=== PATIENT | male | born 1970 | race Caucasian/White ===

== ENCOUNTER → 2017-09-01 | Outpatient (CLI) | payer OTHER ==
[~2017-09-01] VITALS: Ht 180.3 cm; Wt 165.9 kg
[~2017-09-01] MED LIST: CEPH500C PO; SULF1TAB31 PO
[2017-09-01 15:37] VITALS: Ht 180.3 cm; Wt 165.9 kg
[2017-09-01 15:38] VITALS: BP 128/80; PULSE 86; RESP 18
--- NOTE | 2017-09-01 16:01 | PN ---
Date/Time of Note Date/Time of Note DATE: 09/01/17 TIME: 15:56 Outpatient Progress Note Chief Complaint Right axillary abscess/diabetes/obesity HPI Right axillary abscess/patient was recently hospitalized with a right axillary abscess, patient on the multiple antibiotic, patient doing better, no fever chill, minimal discharge, Diabetes/patient has history of diabetes, patient not on any medication, patient was recently admitted with a diabetic ketoacidosis, patient was getting insulin in the hospital, on discharge patient does not have any medication, no Accu-Chek machine, Patient still has slight polydipsia polyuria, blood sugar here 300+, Obesity/patient morbidly obese, no history of hypothyroidism, Review of Systems Const: No Fever, no chills, no Wt. loss, no Fatigue, normal appetite, no diaphoresis. Patient morbidly obese, Eyes: No pain, no discharge, no redness, no visual change, no foreign body. ENT: No pain, no bleeding, no congestion, no sore throat, no dysphagia, no discharge or rhinitis. Lymph: No adenopathy, no tender nodes, no lymphedema. Resp: No SOB, no cough, no sputum, no wheezing, no chest pain. CV: No chest pain, no palpitaions, no MOREJON, no PND, no edema. GI: Normal appetite, no pain, no nausea, no vomiting, no diarrhea, no blood, no constipation. : No frequency, no urgency, no dysuria, no hematuria, no flank pain, no discharge, no bleeding. Musc: no back pain, no neck pain, no knee pain, no restricted ROM. Skin: No rash, no skin lesions, no erythema, no laceration, no bruising, no pruritus. Right axillary abscess improving Neuro: No FOSTER, no dizziness, no syncope, no seizure, no focal-weakness. Endo: No polyuria, no polydypsia, no dry-skin, no temp-intolerance. Psych: No hallucinations, no depression, no anxiety, no suicidal ideation. Ext: No edema, no pain, no ulcer, no weakness. Physical Exam Vital Signs Date Time Temp Pulse Resp B/P Pulse Ox O2 Delivery O2 Flow Rate FiO2 09/01/17 15:38 97.9 86 18 128/80 96 Room Air General Appearance: A 46 year-old male who appears well-developed, well- nourished, in no acute distress. HEENT: Head normocephalic, atraumatic. Pupils equal, round, reactive to light and accommodate. Sclerae are no jaundice. Nasal turbinates pink without erythema or nasal discharge. Mucous membranes pink and moist without lesions. Oropharynx clear without any exudate or discharge. NECK: Supple. Trachea midline, No thyromegaly, No cervical lymphadenopathy, No mass, No carotid bruits, No JVD, Carotid pulses 2+ bilaterally. PULMONARY: Clear to auscultaion bilaterally, No retractions, Chest expansion symmetric bilaterally, no rales, no ronchi, no dulness on percussion. CARDIAC: Normal SI and S2, Regular rate and rythm, no murmur, gallop, or rub. GASTROINTESTINAL: Abdomen is soft, non-tender, Non Rigid, No distention, Positive bowel sounds x4 quadrants, Liver normal. SKIN: Warm, dry, no rash, no bruise, no echmosis right axillary abscess improving,. EXTREMITIES: Bilateral lower extremities minimal edema, no phlabitus, pulse palpable, no contracture. MUSCULOSKELETAL: Spine Normal, Non-tender, Normal range of motion, No swelling, no deformity, no clubbing, or cyanosis, the patient has no edema to bilateral lower extremities, dorsalis pedis pulses palpable bilaterally. NEUROLOGIC: The patient is awake, alert, oriented, responding to yes/no questions appropriately, moving all extremities, cranial nerve intact, normal strenght, normal power, normal coordination, normal gait. Allergies Coded Allergies: No Known Drug Allergies (Verified Allergy, Unknown, 09/01/17) PMH Diabetes/diabetic ketoacidosis/right axillary abscess/obesity/ Social Hx No smoking or drinking, Family Hx Diabetes and ASHD, Assessment/Plan Impression Right axillary abscess/diabetes/obesity Plan Patient education done about diabetes, and the patient already on antibiotic, patient was getting initially in the hospital, on discharge patient does not have any medication, Patient has not been checking and patient not on diet, patient education done, patient reduce her calorie, will provide him 1800-calorie diet paper, Patient encouraged to walk, and increase activity, Patient will be given Accu-Chek machine, and patient will be taught, Patient also will begin Glucophage 500 mg twice a day, will check the blood sugar on Monday If patient does not feel good or hypoglycemia go to the emergency room, not to take risk,,, If any hypoglycemia keep the sugar on the hand, Medications Home Meds Reported Medications Sulfamethoxazole/Trimethoprim* (Bactrim Ds* Tablet) 1 Each Tablet, 1 TAB PO BID , TAB 09/01/17 Cephalexin* (Cephalexin*) 500 Mg Capsule, 500 MG PO Q6, #28 CAP 09/01/17 ROHITH NGO MD Sep 01, 2017 16:01
== END | disposition home or self-care (01) ==
LOC: DCC 15:19
PROVIDERS: ATTEND Internal Medicine
DX: E11.9 Type 2 diabetes mellitus without complications (principal); L02.411 Cutaneous abscess of right axilla; R63.1 Polydipsia; R35.8 Other polyuria; E66.01 Morbid (severe) obesity due to excess calories
CPT/HCPCS: 82962

== ENCOUNTER 2017-09-04 14:43 | Outpatient (CLI) | payer OTHER ==
[~2017-09-04] VITALS: Ht 180.3 cm; Wt 165.9 kg
[2017-09-04 15:17] VITALS: Ht 180.3 cm; Wt 165.9 kg
[2017-09-04 15:18] VITALS: BP 140/88; PULSE 84; RESP 20
--- NOTE | 2017-09-04 15:39 | PN ---
Date/Time of Note Date/Time of Note DATE: 09/04/17 TIME: 15:34 Outpatient Progress Note Chief Complaint Poorly controlled newly onset diabetes/obesity/cellulitis HPI Poorly controlled diabetes/patient was discharged from the hospital, patient was not taking any medication, patient blood sugar was about 300, patient was started on metformin 500 mg twice daily, Patient blood sugars still remain between 200-500, patient denies any frequency urgency or burning, no fever chill, no rash, patient was given 1500 ADA diet, and also advised to increase activity, Obesity/patient morbidly obese, discussed with the patient to reduce the weight , increase exercise, control the diet, Cellulitis/patient had a right axillary cellulitis, improved, patient finished antibiotic, no fever chill, Review of Systems Const: No Fever, no chills, no Wt. loss, no Fatigue, normal appetite, no diaphoresis. She morbidly obese, Eyes: No pain, no discharge, no redness, no visual change, no foreign body. ENT: No pain, no bleeding, no congestion, no sore throat, no dysphagia, no discharge or rhinitis. Lymph: No adenopathy, no tender nodes, no lymphedema. Resp: No SOB, no cough, no sputum, no wheezing, no chest pain. CV: No chest pain, no palpitaions, no MOREJON, no PND, no edema. GI: Normal appetite, no pain, no nausea, no vomiting, no diarrhea, no blood, no constipation. : No frequency, no urgency, no dysuria, no hematuria, no flank pain, no discharge, no bleeding. Musc: No bone/joint pain, no back pain, no neck pain, no knee pain, no restricted ROM. Skin: No rash, no skin lesions, no erythema, no laceration, no bruising, no pruritus. Neuro: No FOSTER, no dizziness, no syncope, no seizure, no focal-weakness. Endo: No polyuria, no polydypsia, no dry-skin, no temp-intolerance. Psych: No hallucinations, no depression, no anxiety, no suicidal ideation. Ext: No edema, no pain, no ulcer, no weakness. Physical Exam Vital Signs Date Time Temp Pulse Resp B/P Pulse Ox O2 Delivery O2 Flow Rate FiO2 09/04/17 15:18 98.2 84 20 140/88 94 Room Air General Appearance: A 46 year-old male who appears well-developed, well- nourished, in no acute distress. Patient morbidly obese, HEENT: Head normocephalic, atraumatic. Pupils equal, round, reactive to light and accommodate. Sclerae repeat obesity, are no jaundice. Nasal turbinates pink without erythema or nasal discharge. Mucous membranes pink and moist without lesions. Oropharynx clear without any exudate or discharge. NECK: Supple. Trachea midline, No thyromegaly, No cervical lymphadenopathy, No mass, No carotid bruits, No JVD, Carotid pulses 2+ bilaterally. PULMONARY: Clear to auscultaion bilaterally, No retractions, Chest expansion symmetric bilaterally, no rales, no ronchi, no dulness on percussion. CARDIAC: Normal SI and S2, Regular rate and rythm, no murmur, gallop, or rub. GASTROINTESTINAL: Abdomen is soft, non-tender, Non Rigid, No distention, Positive bowel sounds x4 quadrants, Liver normal. SKIN: Warm, dry, no rash, no bruise, no echmosis. EXTREMITIES: Bilateral lower extremities normal, no edema, no phlabitus, pulse palpable, no contracture. MUSCULOSKELETAL: Spine Normal, Non-tender, Normal range of motion, No swelling, no deformity, no clubbing, or cyanosis, the patient has no edema to bilateral lower extremities, dorsalis pedis pulses palpable bilaterally. NEUROLOGIC: The patient is awake, alert, oriented, responding to yes/no questions appropriately, moving all extremities, cranial nerve intact, normal strenght, normal power, normal coordination, normal gait. Allergies Coded Allergies: No Known Drug Allergies (Verified Allergy, Unknown, 09/01/17) PMH Diabetes/right axillary abscess/cellulitis improving Obesity Social Hx No change Family Hx No change Assessment/Plan Impression Diabetes out of control Obesity Cellulitis improving Plan Patient was discharged from the hospital for cellulitis, patient was taking antibiotic, Patient has new onset of diabetes, patient was not taking any medication, patient was started on Glucophage 500 mg twice daily, Patient blood sugar for last 3 days still about 200, highest has been 500, Patient Glucophage will be increased to 1000 mg twice daily, and will check the blood sugar level, and adjust the medication, Patient very high risk for repeated admission, unless the blood sugar is controlled, patient encouraged to follow the diet, increase activity, lose weight, Patient may end up with multiple oral medication, risk of hypoglycemia explained to the patient, again in detail Medications Home Meds Reported Medications Sulfamethoxazole/Trimethoprim* (Bactrim Ds* Tablet) 1 Each Tablet, 1 TAB PO BID , TAB 09/01/17 Cephalexin* (Cephalexin*) 500 Mg Capsule, 500 MG PO Q6, #28 CAP 09/01/17 ROHITH NGO MD Sep 04, 2017 15:39
== END 2017-09-04 17:00 | disposition home or self-care (01) ==
LOC: DCC 14:43
PROVIDERS: ATTEND Internal Medicine
DX: E11.9 Type 2 diabetes mellitus without complications (principal); E66.01 Morbid (severe) obesity due to excess calories; Z68.43 Body mass index [BMI] 50.0-59.9, adult; L03.111 Cellulitis of right axilla
CPT/HCPCS: G0463

== ENCOUNTER 2017-09-08 11:22 | Outpatient (CLI) | payer OTHER ==
[~2017-09-08] VITALS: Ht 180.3 cm; Wt 165.0 kg
[2017-09-08 11:39] VITALS: BP 133/89; PULSE 88; RESP 18
[2017-09-08] MEDS ORDERED: MTF1000T PO (11:39)
[2017-09-08 11:40] VITALS: Ht 180.3 cm; Wt 165.0 kg
--- NOTE | 2017-09-08 12:31 | PN ---
Date/Time of Note Date/Time of Note DATE: 09/08/17 TIME: 12:24 Outpatient Progress Note Chief Complaint Diabetes out of control/cellulitis improved/obesity HPI Diabetes out of control/patient denies any polydipsia or polyuria hypoglycemia, patient has been taking Glucophage now 1000 mg twice a day, patient blood sugar between 285-450, Patient has been able to control the diet, patient also has increase activity slowly, Cellulitis/patient has cellulitis of right axilla improved, no bleeding or discharge, Obesity/patient morbidly obese, patient advised to increase activity, Review of Systems Const: No Fever, no chills, no Wt. loss, no Fatigue, normal appetite, no diaphoresis., patient morbidly obese, Eyes: No pain, no discharge, no redness, no visual change, no foreign body. ENT: No pain, no bleeding, no congestion, no sore throat, no dysphagia, no discharge or rhinitis. Lymph: No adenopathy, no tender nodes, no lymphedema. Resp: No SOB, no cough, no sputum, no wheezing, no chest pain. CV: No chest pain, no palpitaions, no MOREJON, no PND, no edema. GI: Normal appetite, no pain, no nausea, no vomiting, no diarrhea, no blood, no constipation. : No frequency, no urgency, no dysuria, no hematuria, no flank pain, no discharge, no bleeding. Musc:, no back pain, no neck pain, no knee pain, no restricted ROM. Skin: No rash, no skin lesions, no erythema, no laceration, no bruising, no pruritus cellulitis in the right axilla almost healed, Neuro: No FOSTER, no dizziness, no syncope, no seizure, no focal-weakness. Endo: No polyuria, no polydypsia, no dry-skin, no temp-intolerance. Psych: No hallucinations, no depression, no anxiety, no suicidal ideation. Ext: No edema, no pain, no ulcer, no weakness. Physical Exam Vital Signs Date Time Temp Pulse Resp B/P Pulse Ox O2 Delivery O2 Flow Rate FiO2 09/08/17 11:39 97.6 88 18 133/89 94 Room Air General Appearance: A 46 year-old male who appears well-developed, well- nourished, in no acute distress. Morbidly obese, HEENT: Head normocephalic, atraumatic. Pupils equal, round, reactive to light and accommodate. Sclerae are no jaundice. NECK: Supple. Trachea midline, No thyromegaly, No cervical lymphadenopathy, No mass, No carotid bruits, No JVD, Carotid pulses 2+ bilaterally. PULMONARY: Clear to auscultaion bilaterally, No retractions, Chest expansion symmetric bilaterally, no rales, no ronchi, no dulness on percussion. CARDIAC: Normal SI and S2, Regular rate and rythm, no murmur, gallop, or rub., No S3, no S4, GASTROINTESTINAL: Abdomen is soft, non-tender, Non Rigid, No distention, Positive bowel sounds x4 quadrants, Liver normal. SKIN: Warm, dry, no rash, no bruise, no echmosis. Right axilla wound clean, cellulitis improved, EXTREMITIES: Bilateral lower extremities no edema, no phlabitus, pulse palpable , no contracture. MUSCULOSKELETAL: Spine Normal, Non-tender, Normal range of motion, No swelling, the patient has no edema to bilateral lower extremities, dorsalis pedis pulses palpable bilaterally. NEUROLOGIC: The patient is awake, alert, oriented, responding to yes/no questions appropriately, moving all extremities, cranial nerve intact, normal strenght, normal power, normal coordination, normal gait. Allergies Coded Allergies: No Known Drug Allergies (Verified Allergy, Unknown, 09/01/17) PMH No change Social Hx No change Family Hx No change Assessment/Plan Impression Diabetes out of control/cellulitis improved/obesity Plan Patient has blood sugar between 285-450, patient is doing exercise, diet, Patient education done about hypoglycemia, and risk of hypoglycemia explained to the patient, leading to encephalopathy if blood sugar remains low for too long, and it may lead to permanent damage on long-term and or even , patient understands it, patient's blood sugar is still elevated, Will start patient on glyburide 5 mg daily, patient to bring all readings before breakfast before lunch and dinner, patient to follow with the primary care physician in 1 week, Patient may need much higher dose, but will gradually increase the dose, risk of hypoglycemia multiple times explained to the patient, patient may end up with insulin, explained to the patient, but will try oral medication, Patient high risk for repeated admission, discussed with the patient to avoid any kind of infection including flu and avoid contact with infected people, Patient is running out of her Glucophage, Glucophage 1000 mg twice a day #60 Glyburide 5 mg daily #30 Medications Home Meds Reported Medications Metformin* (Glucophage*) 1,000 Mg Tablet, 1000 MG PO BID, #60 TAB 09/08/17 Discontinued Reported Medications Sulfamethoxazole/Trimethoprim* (Bactrim Ds* Tablet) 1 Each Tablet, 1 TAB PO BID , TAB 09/01/17 Cephalexin* (Cephalexin*) 500 Mg Capsule, 500 MG PO Q6, #28 CAP 09/01/17 ROHITH NGO MD Sep 08, 2017 12:31
== END 2017-09-08 17:00 | disposition home or self-care (01) ==
LOC: DCC 11:22
PROVIDERS: ATTEND Internal Medicine
DX: E11.9 Type 2 diabetes mellitus without complications (principal); L03.111 Cellulitis of right axilla; E66.01 Morbid (severe) obesity due to excess calories; Z79.84 Long term (current) use of oral hypoglycemic drugs
CPT/HCPCS: 82962; G0463